=== PATIENT | male | born 1995 | race Caucasian/White ===

== ENCOUNTER 2021-09-21 07:09 | Emergency (ER) | payer MEDICAID ==
[~2021-09-21] VITALS: Ht 172.7 cm; Wt 100.0 kg
[~2021-09-21 07:09] MED LIST: CLIN-97 PO
[2021-09-21 07:50] VITALS: BP 134/97
--- NOTE | 2021-09-21 07:50 | NUR ---
Tech applying boot to injured foot. No further needs at this time.
== END 2021-09-21 07:57 | disposition home or self-care (01) ==
LOC: ER 07:09
DX: S90.31XA Contusion of right foot, initial encounter (principal); W22.8XXA Striking against or struck by other objects, initial encounter; Y93.89 Activity, other specified; Y92.89 Other specified places as the place of occurrence of the external cause; Y99.8 Other external cause status
CPT/HCPCS: 73610; 73630; 99284